=== PATIENT | male | born 1975 | race Caucasian/White ===

== ENCOUNTER 2019-11-27 18:43 | Emergency (ER) | payer BC, SELFPAY ==
--- NOTE | ~2019-11-27 | XR_ITS ---
EXAMINATION: XR hand RT min 3V DATE: 11/27/2019 19:06 INDICATION: Right hand and wrist pain post fall TECHNIQUE: Posteroanterior, oblique and lateral views of the right hand were obtained. COMPARISON: None. FINDINGS: Alignment is normal. No fracture. Joint spaces are normal. Soft tissues are unremarkable. IMPRESSION: 1. Negative right hand radiographs. Reviewed, dictated and finalized at location A.
[2019-11-27 18:58] VITALS: BP 146/82; PULSE 92; RESP 18; TEMP 36.9; O2SAT 100
--- NOTE | 2019-11-27 19:34 | ED.UPPEXIN ---
HPI - Extremity Injury (Upper) General Chief Complaint: Extremity Injury, Upper Stated Complaint: right hand injury History of Present Illness HPI narrative: This is apatient that comes in because he fell out a ladder and he injuried his wrist and hand patient denies hitting his head. Patient states that his arm is hurting but it hurts him to close his hand or rotate his wrist hurts extremely Related Data Home Medications Medication Instructions Recorded Confirmed atorvastatin 11/27/19 escitalopram oxalate mg 11/27/19 lisinopril 11/27/19 lorazepam 11/27/19 metformin mg 11/27/19 omeprazole 11/27/19 topiramate 11/27/19 Allergies Allergy/AdvReac Type Severity Reaction Status Date / Time No Known Allergies Allergy Verified 11/27/19 19:15 Review of Systems Review of Systems: Narrative: CONSTITUTIONAL: Denies fever, chills, or sweats. EYES: Denies visual changes, redness, or discharge. ENT: Denies rhinorrhea, congestion, sore throat, or otalgia. CARDIOVASCULAR:Denies chest pain, palpitations, or edema. RESPIRATORY: Denies cough or dyspnea. GASTROINTESTINAL: Denies abdominal pain, nausea, vomiting, or diarrhea. GENITOURINARY: Denies dysuria or hematuria. SKIN:[Denies rash or itching. MUSCULOSKELETAL:Denies back pain, joint pain, or myalgia.right arm and wrist pain NEUROLOGIC: Denies headache, numbness, or weakness. PSYCHIATRIC:Denies anxiety or depression PMFSH Comments At time as signature, I have reviewed and agree with nursing past medical, social, surgical and family history. Please see nursing chart for further information. There is no relevant family history pertinent to the presenting complaint. Exam Narrative: Exam Narrative: GENERAL:Well-appearing, well-nourished, and in no acute distress. HEAD:Normocephalic, atraumatic. EYES: PERRLA and EOMI. ENT: Nares clear, no rhinorrhea or epistaxis. Mucous membranes moist. NECK: Supple. CHEST: Clear to auscultation. No respiratory distress. HEART: Regular rate and rhythm. No murmur heard. Normal peripheral pulses. ABDOMEN: Soft, nontender, nondistended, normal active bowel sounds. EXTREMITIES: decreasedl range of motion on the right wrist due to pain . No edema. body hurts and is sore. SKIN: Warm, dry, no rash. NEURO: No focal deficits. Alert and oriented x3. Course Vital Signs Vital signs: Vital Signs Temperature 98.4 F 11/27/19 18:58 Pulse Rate 92 11/27/19 18:58 Respiratory Rate 18 11/27/19 18:58 Blood Pressure 146/82 H 11/27/19 18:58 Pulse Oximetry 100 11/27/19 18:58 Temperature 98.4 F 11/27/19 18:58 Pulse Rate 92 11/27/19 18:58 Respiratory Rate 18 11/27/19 18:58 Blood Pressure 146/82 H 11/27/19 18:58 Pulse Oximetry 100 11/27/19 18:58 MDM - Extremity Injury (Upper) Differential Diagnosis Differential diagnosis: Likely sprain and strain of wrist, fracture of wrist, finger sprain, dislocation of shoulder and fracture of humerus Discharge Plan Discharge Clinical Impression: Sprain and strain of wrist Patient Disposition: Home, Self-Care Condition: Stable Instructions: Antibiotic Form, Wrist Sprain (ED) Additional Instructions: Sprain instructions avoid weight bearing until the pain subsides. Ice to the area 20-30 minutes 4-6 times a day Elevate above heart Elastic wrap or orthopedic splint as directed for comfort for the next 5-7 days Tylenol for lesser pain Ibuprofen regularly for the next 2-3 days for the inflammation Follow up with your primary care provider if the condition is not improving within 1 week or sooner if the condition worsens with numbness, tingling, decrease sensation with weakness to seek ER. If you are having symptoms in 5-7 day you may need to follow up for a occult fracture Prescriptions: New ibuprofen 800 mg tablet 800 mg PO Q6H PRN (Reason: pain) Qty: 30 RF: 0 No Action metformin 500 mg tablet RF: 0 atorvastatin 10 mg tablet
== END 2019-11-27 19:45 | disposition home or self-care (01) ==
PROVIDERS: Emergency Provider Nurse Practitioner Family; PCP Family Medicine
DX: S63.501A Unspecified sprain of right wrist, initial encounter (principal); S66.911A Strain of unspecified muscle, fascia and tendon at wrist and hand level, right hand, initial encounter; W11.XXXA Fall on and from ladder, initial encounter
CPT/HCPCS: 73130; 99213; G0463

== ENCOUNTER 2020-03-03 15:05 | Observation (INO) | payer BC, SELFPAY ==
[2020-03-03] VITALS (17 sets, daily range): BP systolic 104–162; BP diastolic 59–107; PULSE 60–93; RESP 12–23; TEMP 35.9–36.5; O2SAT 95–99; BMI 37.5
--- NOTE | ~2020-03-03 | XR_ITS ---
EXAMINATION: XR chest 2V EXAM DATE: 03/03/2020 15:39 INDICATION: Mid chest pain. High blood pressure. TECHNIQUE: Frontal and lateral projections of the chest obtained and reviewed. There is no prior esteban dy for comparison. FINDINGS: The lungs are clear. There are no pleural effusions. The cardiomediastinal silhouette is within normal limits. There is no pneumothorax suspected. The bones and soft tissues are unremarkab le. IMPRESSION: Normal chest x-ray exam. Reviewed, dictated and finalized at location A. IMPRESSION: Normal chest x-ray exam.
--- NOTE | 2020-03-03 15:10 | ECG_ITS ---
Measurements Intervals [place] Rate: 86 P: 56 WA: 137 QRS: 63 QRSD: 109 T: 57 QT: 337 QTc: 405 Interpretive Statements SINUS RHYTHM BASELINE ARTIFACT- I, III, V2-V3 NORMAL ECG Electronically Signed On 03-03-2020 15:35:28 CDT by Pepe Teague D.O.
--- NOTE | 2020-03-03 15:12 | ED.CHESTPAIN ---
HPI - Chest Pain General Chief Complaint: Chest Pain Stated Complaint: Chest Pain Time Seen by Provider: 03/03/20 15:09 Source: RN notes reviewed History of Present Illness HPI narrative: Patient presents emergency department from home for chest pain. Patient states he was driving his car when he began to feel pain across his mid chest described as a squeezing pain he states no associated shortness of breath and dizziness with the symptoms. States that symptoms are improved but are still present at this time. He states that he does have a history of anxiety attacks and he did feel anxious when it started. He denies any fevers or chills abdominal pain nausea vomiting or any other symptoms Related Data Home Medications Medication Instructions Recorded Confirmed atorvastatin 11/27/19 escitalopram oxalate mg 11/27/19 lisinopril 11/27/19 metformin mg 11/27/19 omeprazole 11/27/19 Allergies Allergy/AdvReac Type Severity Reaction Status Date / Time Penicillins Allergy Unknown Skin Verified 03/03/20 15:36 irritation Review of Systems Review of Systems: Narrative: Gen.: Denies fevers or chills ENT: Denies congestion Respiratory: Reports shortness of breath CV: See HPI GI: Denies abdominal pain nausea, emesis or diarrhea Musculoskeletal: Denies back pain or muscle pain Neuro: Denies numbness, tingling, weakness or focal weakness Skin: Denies rash Except as documented, all other systems reviewed and negative [facility] Past Medical History Medical History (Updated 03/03/20 @ 16:32 by Matthieu Jarvis DO) Diabetes mellitus Hypertension Family History Family History (System 12/06/19 @ 10:38 by Renetta Uribe) Father Diabetes mellitus Social History Social History Smoking status: Never smoker Alcohol intake: current Exam Narrative: Exam Narrative: APPEARANCE: No acute distress, nontoxic, resting in bed EYES: EOMI HEENT: Normocephalic, atraumatic, OMM RESPIRATORY: No respiratory distress Clear to auscultation bilaterally with no rhonchi wheezing or rales. CARDIOVASCULAR: Regular rate and rhythm without murmurs rubs or gallops. ABDOMINAL: Soft, nontender, nondistended, no rebound or guarding MUSCULOSKELETAl: Moves all extremities. No clubbing, cyanosis or edema. NEURO: Awake and alert. Following commands, speech normal, no focal deficits SKIN:: Warm, dry. No rashes lesions or abrasions PSYCHIATRIC: Normal affect/mood, Course Course Emergency Course: Patient states chest pain has resolved following Ativan Discussed with Dr Teixeira presentation work-up. At this time recommends admission to the chest pain center Discussed with patient and family results of workup and diagnosis. Discussed need for admission. Patient and family understand and agree to current treatment plan Vital Signs Vital signs: Vital Signs Temperature 97.3 F L 03/03/20 15:10 Pulse Rate 84 03/03/20 15:10 Respiratory Rate 20 03/03/20 15:10 Blood Pressure 162/107 H 03/03/20 15:10 Pulse Oximetry 99 03/03/20 15:10 Temperature 97.3 F L 03/03/20 15:10 Pulse Rate 85 03/03/20 16:16 Respiratory Rate 19 03/03/20 16:16 Blood Pressure 119/75 03/03/20 16:16 Pulse Oximetry 97 03/03/20 16:16 MDM - Chest Pain Lab Data Result diagrams: 03/03/20 15:22 03/03/20 15:22 Labs: Lab Results 03/03/20 03/03/20 03/03/20 Range/Units 15:22 15:22 15:22 WBC 7.1 (4.5-10.0) K/mm3 RBC 4.76 (4.6-6.20) M/mm3 Hgb 14.4 (14.0-18.0) g/dL Hct 42.7 (42.0-52.0) % MCV 89.7 (80-100) fl MCH 30.3 (26-34) pg MCHC 33.7 (32-36) g/dl RDW 13.2 (11.5-14.5) % Plt Count 182 (150-375) k/mm3 MPV 11.0 H (7.4-10.4) fl Immature Gran % (Auto) 0.1 (0-0.5) % Neut % (Auto) 68.2 (45.5-73.1) % Lymph % (Auto) 24.4 (18.3-44.2) % Wilcox % (Auto) 6.3 (2.6-8.5) % Eos % (Auto) 0.6
[2020-03-03] MEDS: ASPIRIN 81 MG CHEWABLE TABLET 324 MG PO (15:36)
[2020-03-03 15:43] LABS: Basophils Percent Auto 0.4 % (0.2-1.2); Eosinophils Percent Auto 0.6 % (0-4.4); Hematocrit 42.7 % (42.0-52.0); Hemoglobin 14.4 g/dL (14.0-18.0); Immature Granulocyte Absolute 0.01 K/mm3 (0.00-0.031); Immature Granulocyte Percent A 0.1 % (0-0.5); Immature Platelet Fraction Pct 3.6 % (0.9-11.2); Lymphocytes Absolute Auto 1.73 K/mm3 (0.9-3.2); Lymphocytes Percent Auto 24.4 % (18.3-44.2); Mean Corpuscular HGB Conc 33.7 g/dl (32-36); Mean Corpuscular Hemoglobin 30.3 pg (26-34); Mean Corpuscular Volume 89.7 fl (80-100); Monocytes Absolute Auto 0.5 K/mm3 (0.1-0.6); Monocytes Percent Auto 6.3 % (2.6-8.5); Neutrophils Absolute Auto 4.8 K/mm3 (1.3-6.7); Neutrophils Percent Auto 68.2 % (45.5-73.1); Platelet Count Result 182 k/mm3 (150-375); Red Blood Count 4.76 M/mm3 (4.6-6.20); Red Cell Distribution Width 13.2 % (11.5-14.5); White Blood Count 7.1 K/mm3 (4.5-10.0)
[2020-03-03 15:44] LABS: Anion Gap 16.9 mmol/L (7-16); Blood Urea Nitrogen 15 mg/dL (9-20); Calcium 9.2 mg/dL (8.4-10.2); Carbon Dioxide 23 mmol/L (22-30); Chloride 100 mmol/L (98-107); Estimated CRCL calculation 107 ml/min; Estimated Glomerular Filt Rate > 60; Glucose 176 mg/dL (75-110); Potassium 3.9 mmol/L (3.4-5.0); Sodium 136 mmol/L (137-145)
[2020-03-03 15:56] LABS: Troponin I < 0.012 ng/mL (0.000-0.034)
[2020-03-03 16:10] LABS: Prothrombin Time 12.7 Seconds (11.1-14.7)
[2020-03-03 16:12] LABS: Partial Thromboplastin Time 25.8 SECONDS (22.3-36.8)
--- NOTE | 2020-03-03 17:45 | ADMGEN ---
This patient, Sd Dangelo, was admitted to IMU Room 209-01. Patient/family oriented to hospital policies and general routines including ID bracelet, bed and alarms, visiting hours, pain management, procedures, bathroom and other care routines, personal items, smoking policy, room service/diet, and visiting hours. Valuables list has been completed. Information on how to activate the Rapid Response Team has been discussed. Patient/Family are encouraged to report perceived risks to care and to ask questions if they do not understand what they are told or what they should do.
[2020-03-03 18:17] LABS: Cholesterol 111 mg/dL (0-200); HDL Direct 16 mg/dL; Triglycerides 309 mg/dL (<150)
[2020-03-03 18:27] LABS: LDL Cholesterol Direct 60 mg/dL
[2020-03-03 18:29] LABS: Troponin I < 0.012 ng/mL (0.000-0.034)
[2020-03-03 18:51] LABS: Troponin I < 0.012 ng/mL (0.000-0.034)
--- NOTE | 2020-03-03 19:18 | ECG_ITS ---
Measurements Intervals [place] Rate: 93 P: 33 GA: 137 QRS: 52 QRSD: 104 T: 44 QT: 340 QTc: 423 Interpretive Statements SINUS RHYTHM DELAYED PRECORDIAL R/S TRANSITION BORDERLINE ECG Electronically Signed On 03-03-2020 19:46:45 CDT by Pepe Teague D.O.
[2020-03-03] MEDS: ACETAMINOPHEN 325 MG TABLET 650 MG PO (20:16)
[2020-03-03 22:01] LABS: Troponin I < 0.012 ng/mL (0.000-0.034)
--- NOTE | 2020-03-03 22:18 | ECG_ITS ---
Measurements Intervals [place] Rate: 67 P: 39 MT: 149 QRS: 42 QRSD: 109 T: 55 QT: 385 QTc: 406 Interpretive Statements SINUS RHYTHM NORMAL ECG Electronically Signed On 03-04-2020 7:33:17 CDT by Pepe Teague D.O.
[2020-03-04] VITALS (7 sets, daily range): BP systolic 116–125; BP diastolic 69; PULSE 56–70; RESP 18–20; TEMP 35.8–36.1; O2SAT 98–99
[2020-03-04] MEDS: ATORVASTATIN 10 MG TABLET PO (08:11)
[2020-03-04] MEDS: ESCITALOPRAM OXALATE 10 MG TABLET 20 MG PO (08:11)
[2020-03-04] MEDS: lisinopriL 10 MG TABLET PO (08:11)
[2020-03-04] MEDS: TOPIRAMATE 25 MG TABLET 50 MG PO (08:11)
[2020-03-04] MEDS: PANTOPRAZOLE 40 MG TABLET PO (08:11)
[2020-03-04] MEDS: metFORMIN HCL 500 MG TABLET PO (08:11)
[2020-03-04] MEDS: LORazepam 1 MG TABLET PO (08:13)
[2020-03-04] MEDS: ASPIRIN 81 MG CHEWABLE TABLET PO (08:15)
--- NOTE | 2020-03-04 08:56 | PM.IMHP ---
H&P: HPI History of Present Illness Chief complaint: Chest Pain Narrative: Sd Dangelo is a 44 year old male with h/o HTN, DM and HLD who presented with chest pain He had lunch then started driving when he felt hot flush sensation all through his body as well as nausea. Also felt tremors and it was difficult to hold his phone. Eventually developed chest pain felt like chest will collapse inside. So he drove him self to ER. No shortness of breath, dizziness or lightheadedness. He felt better after he relaxed in ER bed. No known cardiac history or cardiac work up in the past. He was diagnosed with DM last year and Metformin dose was increased last month. He does not check sugar at home. He had anxiety attack in the past but that was more than 15 years ago. He is on Topiramate for headaches following head injury long time ago EKG shows normal sinus rhythm. Trop negative X 3. TG elevated 309, otherwise labs are normal Review of Systems Review of Systems: All systems reviewed & are unremarkable except as noted in HPI and below Constitutional: Constitutional: Denies fatigue and Denies headache(s) Eyes: Eyes: Denies blurry vision ENT: Reports Normal hearing present and Denies headache(s) Cardiovascular: Cardiovascular: Denies chest pain, Denies diaphoresis, Denies pedal edema, Denies leg edema, Denies lightheadedness, Denies palpitations and Denies dyspnea Respiratory: Respiratory: Denies cough and Denies dyspnea Gastrointestinal: Gastrointestinal: Denies abdominal pain Musculoskeletal: Musculoskeletal: Denies back pain Neurologic: Reports Normal hearing present and Denies headache(s) Psychiatric: Psychiatric: Denies anxiety Endocrine: Endocrine: Denies fatigue and Denies palpitations [facility] Past Medical History Medical History (Updated 03/04/20 @ 09:01 by Yevgeniy Phillips MD) Diabetes mellitus Hypertension Social History Social History Smoking status: Never smoker Alcohol intake: current Substance use: never Living arrangements: with family Gender identity (if verbalized by the patient): Male Spiritual care concerns: No Meds Home Medications and Allergies Home Medications Medication Instructions Recorded Confirmed Type atorvastatin 10 mg PO DAILY 11/27/19 03/03/20 History escitalopram oxalate 20 mg PO BID 11/27/19 03/03/20 History lisinopril 10 mg PO DAILY 11/27/19 03/03/20 History metformin 500 mg PO BID 11/27/19 03/03/20 History omeprazole 40 mg PO DAILY 11/27/19 03/03/20 History lorazepam 1 mg PO BID 03/03/20 03/03/20 History topiramate 50 mg PO BID 03/03/20 03/03/20 History Allergies Allergy/AdvReac Type Severity Reaction Status Date / Time Penicillins Allergy Unknown Skin Verified 03/03/20 15:36 irritation Vital Signs Vital Signs - 24 hr 03/03/20 15:10 03/03/20 15:17 03/03/20 15:30 Temperature 36.3 C L Pulse Rate 84 87 87 Respiratory Rate 20 12 20 Blood Pressure 162/107 H Pulse Oximetry 99 99 03/03/20 15:32 03/03/20 15:42 03/03/20 15:45 Temperature Pulse Rate 81 84 83 Respiratory Rate 13 16 17 Blood Pressure 131/72 140/78 Pulse Oximetry 96 96 03/03/20 15:46 03/03/20 16:00 03/03/20 16:01 Temperature Pulse Rate 86 81 87 Respiratory Rate 17 18 23 H Blood Pressure 125/81 129/74 Pulse Oximetry 95 97 96 03/03/20 16:15 03/03/20 16:16 03/03/20 16:48 Temperature Pulse Rate 89 85 85 Respiratory Rate 18 19 20 Blood Pressure 119/75 125/68 Pulse Oximetry 96 97 98 03/03/20 17:36 03/03/20 19:57 03/03/20 20:00 Temperature 36.2 C L 36.5 C Pulse Rate 93 76 79 Respiratory Rate 14 18 18 Blood Pressure 143/76 H 122/59 L Pulse Oximetry 95 97 97 03/03/20 22:00 03/03/20 23:41 03/04/20 00:00 Temperature 35.9 C L Pulse Rate 77 60 70 Respiratory Rate 20 Blood Pressure 104/59 L Pulse Oximetry 98 03/04/20 02:00 03/04/20 03:57 03/04/20 04:00 Temperature 36.1 C L
--- NOTE | 2020-03-04 09:03 | PM.DS ---
DS: Discharge Diagnosis Discharge Diagnosis (1) Chest pain: Code(s): R07.9 - Chest pain, unspecified Status: Acute Assessment and Plan: Chest pain is atypical for angina and happended in the setting of what appears like vasovagal reaction vs transient hypoglycemia His trop is negative and EKG shows no ischemic changes Given risk factors of HTN, DM and HLD would recommend stress testing for risk stratification. Due to weekend schedule will plan stress test in outpatient settings. He is pain free now and ruled out for [place]. Will discharge home with outpatient follow up for stress testing (2) Hypertension: Code(s): I10 - Essential (primary) hypertension Status: Acute Assessment and Plan: Well controlled (3) Diabetes mellitus: Code(s): E11.9 - Type 2 diabetes mellitus without complications Status: Acute Assessment and Plan: continue metformin (4) HLD (hyperlipidemia): Code(s): E78.5 - Hyperlipidemia, unspecified Status: Acute DS: Summary Time Spent with Patient Time attestation: Total time spent providing and/or coordinating discharge services: Exam Const: General: no acute distress Eyes: Sclera: sclerae normal Neck: Neck: no JVD Carotids: no bruits Resp: Effort & Inspection: normal respiratory effort Auscultation: clear to auscultation bilaterally Cardio: Rate: regular rate and not tachycardic Rhythm: regular rhythm Heart sounds: no gallops, no murmurs and no rubs Skin: General skin exam: normal color Neuro: Cranial nerves: Yes Normal hearing present Speech: normal speech Extrem: General: normal to inspection and no edema Psych: Affect: normal affect DS: Data Data Completed and Pending Labs on day of discharge: Labs from last 24 hours 03/03/20 03/03/20 03/03/20 21:28 18:16 17:58 WBC RBC Hgb Hct MCV MCH MCHC RDW Plt Count MPV Immature Gran % (Auto) Neut % (Auto) Lymph % (Auto) Piatt % (Auto) Eos % (Auto) Baso % (Auto) Lymph # (Auto) Piatt # (Auto) Eos # (Auto) Baso # (Auto) Abs Immat Gran (auto) Absolute Neuts (auto) Absolute Nucleated RBC Nucleated RBC % % Immature Plt Fraction PT INR APTT Sodium Potassium Chloride Carbon Dioxide Anion Gap BUN Creatinine Estim Creat Clear Calc Estimated GFR Glucose Calcium Troponin I < 0.012 < 0.012 Triglycerides 309 H Cholesterol 111 LDL Cholesterol Direct 60 HDL Direct 16 03/03/20 03/03/20 03/03/20 17:58 15:22 15:22 WBC RBC Hgb Hct MCV MCH MCHC RDW Plt Count MPV Immature Gran % (Auto) Neut % (Auto) Lymph % (Auto) Piatt % (Auto) Eos % (Auto) Baso % (Auto) Lymph # (Auto) Piatt # (Auto) Eos # (Auto) Baso # (Auto) Abs Immat Gran (auto) Absolute Neuts (auto) Absolute Nucleated RBC Nucleated RBC % % Immature Plt Fraction PT 12.7 INR 1.0 APTT 25.8 Sodium 136 L Potassium 3.9 Chloride 100 Carbon Dioxide 23 Anion Gap 16.9 H BUN 15 Creatinine 1.20 Estim Creat Clear Calc 107 Estimated GFR > 60 Glucose 176 H Calcium 9.2 Troponin I < 0.012 < 0.012 Triglycerides Cholesterol LDL Cholesterol Direct HDL Direct 03/03/20 15:22 WBC 7.1 RBC 4.76 Hgb 14.4 Hct 42.7 MCV 89.7 MCH 30.3 MCHC 33.7 RDW 13.2 Plt Count 182 MPV 11.0 H Immature Gran % (Auto) 0.1 Neut % (Auto) 68.2 Lymph % (Auto) 24.4 Piatt % (Auto) 6.3 Eos % (Auto) 0.6 Baso % (Auto) 0.4 Lymph # (Auto) 1.73 Piatt # (Auto) 0.5 Eos # (Auto) 0.0 Baso # (Auto) 0.0 Abs Immat Gran (auto) 0.01 Absolute Neuts (auto) 4.8 Absolute Nucleated RBC 0.0 Nucleated RBC % 0.0 % Immature Plt Fraction 3.6 PT INR APTT Sodium Potassium Chloride Carbon Dioxide Anion Gap BUN Creatinine Estim Creat Carlos
== END 2020-03-04 09:35 | disposition home or self-care (01) ==
LOC: ANHED 16:32 → ANHIMU 16:41
PROVIDERS: Admitting Provider Specialist; Emergency Provider Emergency Medicine; PCP Family Medicine; Visit Provider Internal Medicine
DX: R07.9 Chest pain, unspecified (principal); I10 Essential (primary) hypertension; E11.9 Type 2 diabetes mellitus without complications; E78.5 Hyperlipidemia, unspecified; Z79.84 Long term (current) use of oral hypoglycemic drugs
CPT/HCPCS: 36415; 71046; 80048; 80061; 84484; 85025; 85055; 85610; 85730; 93005; 96374; 99285; A9270; G0378; J2060

== ENCOUNTER 2022-04-11 04:00 | Emergency (ER) | payer BC, SELFPAY ==
[2022-04-11 04:19] VITALS: BP 146/92; PULSE 62; RESP 18; TEMP 36.6; O2SAT 100
[2022-04-11] MEDS: ONDANSETRON HCL ODT 4 MG TABLET PO (05:40)
--- NOTE | 2022-04-11 06:12 | ED.DENTAL ---
HPI - Dental/Oral General Chief complaint: Dental/Oral Stated complaint: bleeding from gums after dental procedure Time Seen by Provider: 04/11/22 04:14 History of Present Illness HPI Narrative: Patient is a 46-year-old male who presents ER with dental bleeding. He had a deep dental cleaning today and has been bleeding mainly from the space between tooth #8 9. No difficulty breathing or swallowing. No fevers chills or sweats. He is not on any blood thinners or antiplatelet agents. Related Data Home Medications Medication Instructions Recorded Confirmed atorvastatin 10 mg tablet 10 mg PO DAILY 11/27/19 03/03/20 escitalopram oxalate 20 mg tablet 20 mg PO BID 11/27/19 03/03/20 lisinopril 10 mg tablet 10 mg PO DAILY 11/27/19 03/03/20 omeprazole 40 mg capsule,delayed 40 mg PO DAILY 11/27/19 03/03/20 release lorazepam 1 mg tablet 1 mg PO BID anxiety 03/03/20 03/03/20 topiramate 50 mg tablet 50 mg PO BID 03/03/20 03/03/20 Allergies Allergy/AdvReac Type Severity Reaction Status Date / Time Penicillins Allergy Unknown Skin Verified 04/11/22 04:04 irritation Review of Systems ENT: Denies nasal congestion and Denies sore throat Comments: Dental bleeding Gastrointestinal: Gastrointestinal: Reports nausea and Denies vomiting PMFSH Past Medical History Medical History (Updated 04/11/22 @ 06:13 by Harpreet Waldrop MD) Diabetes mellitus Hypertension Family History Family History Father Diabetes mellitus Social History Social History Smoking status: Never smoker Alcohol intake: current Substance use: never Gender identity (if verbalized by the patient): Male Spiritual care concerns: No Exam Narrative: GENERAL: Well-appearing, well-nourished, and in no acute distress. HEAD: Normocephalic, atraumatic. ENT: Mucous membranes moist. Continuous oozing throughout the space between tooth #8 9. No fluctuant abscess. NECK: Supple. NEURO: Alert and oriented x3. PSYCH: Normal mood and affect. Course Course Emergency Course: Patient resting comfortably. Small amount of mail manager with epi injected at the tooth line which stopped the bleeding. Vital Signs Vital signs: Vital Signs Temperature 97.8 F 04/11/22 04:19 Pulse Rate 62 04/11/22 04:19 Respiratory Rate 18 04/11/22 04:19 Blood Pressure 146/92 H 04/11/22 04:19 Pulse Oximetry 100 04/11/22 04:19 Oxygen Delivery Room Air 04/11/22 04:19 Temperature 97.8 F 04/11/22 04:19 Pulse Rate 62 04/11/22 04:19 Respiratory Rate 18 04/11/22 04:19 Blood Pressure 146/92 H 04/11/22 04:19 Pulse Oximetry 100 04/11/22 04:19 Oxygen Delivery Room Air 04/11/22 04:19 Discharge Plan Discharge Clinical Impression: Surgical wound hemorrhage after dental procedure Patient Disposition: Home, Self-Care Condition: Stable Additional Instructions: If you have recurrent bleeding you to try applying a teabag to the area of bleeding for 15 to 20 minutes. This may help provide hemostasis. Return the ER if you cannot breathe, you have fever over 100.4 ?F, you have additional concerns. Prescriptions: No Action atorvastatin 10 mg tablet 10 mg PO DAILY omeprazole 40 mg capsule,delayed release(DR/EC) 40 mg PO DAILY lisinopril 10 mg tablet 10 mg PO DAILY escitalopram oxalate 20 mg tablet 20 mg PO BID lorazepam 1 mg Tablet 1 mg PO BID topiramate 50 mg Tablet 50 mg PO BID Follow-up/Referrals: Yimi Smith MD [Primary Care Provider] - 1 Week
[2022-04-11 06:21] VITALS: BP 129/94; PULSE 68; RESP 18; TEMP 36.2; O2SAT 98
== END 2022-04-11 06:23 | disposition home or self-care (01) ==
PROVIDERS: Emergency Provider Emergency Medicine; PCP Family Medicine
DX: K91.840 Postprocedural hemorrhage of a digestive system organ or structure following a digestive system procedure (principal); E11.9 Type 2 diabetes mellitus without complications; I10 Essential (primary) hypertension
CPT/HCPCS: 99283; A9270